=== PATIENT | male | born 1990 | race Caucasian/White ===

== ENCOUNTER 2018-08-15 15:29 | Emergency (ER) | payer OTHER ==
[~2018-08-15] VITALS: Ht 180.3 cm; Wt 69.4 kg
[~2018-08-15 15:29] MED LIST: MECLIZINE HCL25 MG PO
== END 2018-08-15 18:58 | disposition home or self-care (01) ==
LOC: ER 15:29
DX: R00.2 Palpitations (principal)

== ENCOUNTER 2020-12-24 10:22 | Emergency (ER) | payer OTHER ==
[~2020-12-24] VITALS: Ht 180.3 cm; Wt 68.0 kg
== END 2020-12-24 15:28 | disposition home or self-care (01) ==
LOC: ER 10:22
DX: R10.12 Left upper quadrant pain (principal); R55 Syncope and collapse

== ENCOUNTER 2024-06-05 07:29 | Emergency (ER) | payer OTHER ==
[~2024-06-05] VITALS: Ht 180.3 cm; Wt 56.7 kg
[2024-06-05] MEDS ORDERED: PROTONIX40 MG (07:44)
[2024-06-05] MEDS ORDERED: NASAL MIST126 ML (07:44)
[2024-06-05] MEDS ORDERED: MORPHINE SULFATE 4 MG/ML CARTRIDGE IV ONE (09:15)
[2024-06-05] MEDS ORDERED: FAMOtidine 10 MG/ML (4ML VIAL) IV ONE (09:15)
[2024-06-05] MEDS ORDERED: METHYLPREDNISOLONE SOD SUCC 40 MG VIAL IV ONE (09:15)
[2024-06-05] MEDS ORDERED: 0.9 % SODIUM CHLORIDE 1,000 ML IV ONE (09:15)
[2024-06-05] MEDS ORDERED: ONDANSETRON HCL 2 MG/ML VIAL IV ONE (09:15)
[2024-06-05 09:40] LABS: HEMATOCRIT 44.4 % (39.0-48.0); HEMOGLOBIN 15.8 g/dL (13-16.00); MEAN CELL VOLUME 88.3 fL (80.0-100.00); MEAN CORPUSCULAR HEMOGLOBIN 31.4 pg (27.00-32.0); MEAN CORPUSCULAR HGB CONC 35.5 g/dl (32.0-36.0); PLATELET COUNT 251 K/uL (150-450); RED BLOOD COUNT 5.03 M/uL (4.00-6.00); RED CELL DISTRIBUTION WIDTH 13.5 % (11.5-14.5)
[2024-06-05 10:07] LABS: ALBUMIN 4.6 gm/dL (3.4-5.0); BILIRUBIN TOTAL 0.62 mg/dL (0.3-1.2); CALCIUM 10.1 mg/dL (8.5-10.1); CREATININE SERUM 1.07 mg/dL (0.70-1.30); GFR 78.64; GLOBULINA 4.3 G/DL (2.4-3.5); INR 1.12; PARTIAL THROMBOPLASTIN TIME 29.1 SECONDS (22.0-34.0); POTASSIUM 4.22 mEq/L (3.5-5.1); PROTHROMBIN TIME 12.1 SECONDS (9.0-11.5); TOTAL PROTEIN 8.9 gm/dL (6.4-8.2)
[2024-06-05 10:57] LABS: PH,URINE 5.5 (5.0-8.0); URINE APPEARANCE Clear; URINE BILIRRUBIN Negative (NEGATIVE); URINE BLOOD Negative; URINE COLOR Yellow; URINE GLUCOSE Negative (NEGATIVE); URINE KETONE Negative (NEGATIVE); URINE LEUKOCYTE Negative; URINE NITRATE Negative; URINE PROTEIN Negative (NEGATIVE); URINE UROBILINOGEN 0.2 E.U./dl
[2024-06-05 11:16] LABS: URINE EPITHELIAL CELLS 6.1 uL (0.0-38.8); URINE RBC 4.7 uL (0.0-20.8); URINE WBC 7.5 uL (0.0-23.2)
[2024-06-05 11:17] LABS: URINE CAST 0.44 uL (0.0-1.40)
[2024-06-05] MEDS ORDERED: NORFLEX100MG PO (13:50)
[2024-06-05] MEDS ORDERED: ANALPRAM HC 2.530 GM RECTAL (13:55)
== END 2024-06-05 14:06 | disposition home or self-care (01) ==
LOC: ER 07:31
PROVIDERS: General Practice
DX: K64.9 Unspecified hemorrhoids (principal); Z88.6 Allergy status to analgesic agent
CPT/HCPCS: 36415; 74177; Q9965

== ENCOUNTER 2024-10-27 08:56 | Emergency (ER) | payer OTHER ==
[~2024-10-27] VITALS: Ht 180.3 cm; Wt 59.0 kg
[~2024-10-27 08:56] MED LIST changes: +ANALPRAM HC 2.530 GM RECTAL; +NASAL MIST126 ML; +NORFLEX100MG PO; +PROTONIX40 MG
[2024-10-27] MEDS ORDERED: PEPCID AC20 MG (09:44)
[2024-10-27] MEDS ORDERED: DICYCLOMINE HCL 10 MG CAPSULE PO ONE (10:00)
[2024-10-27] MEDS ORDERED: PANTOPRAZOLE SODIUM 40 MG/VIAL VIAL IV ONE (10:00)
[2024-10-27 11:36] LABS: ALT/SGPT 26 U/L (12-78); AST/SGOT 15 U/L (15-37); LDH 171 U/L (87-241); PHOSPHOKINASE CREATININE 70 U/L (39-308)
== END 2024-10-27 12:32 | disposition home or self-care (01) ==
LOC: ER 08:56
PROVIDERS: General Practice
DX: R12 Heartburn (principal); K21.9 Gastro-esophageal reflux disease without esophagitis; Z88.6 Allergy status to analgesic agent